=== PATIENT | male | born 1960 | race Hispanic/Latino ===

== ENCOUNTER 2022-03-03 13:52 | Emergency (ER) | payer OTHER ==
[~2022-03-03] VITALS: Ht 165.1 cm; Wt 133.4 kg
[2022-03-03] MEDS ORDERED: HYDROCODONE/ACETAMINOPHEN 5/325 MG TAB PO SCH (14:30)
[2022-03-03] MEDS ORDERED: NAPR-1180 PO (14:36)
[2022-03-03 14:44] VITALS: BP 129/74
== END 2022-03-03 14:41 | disposition home or self-care (01) ==
LOC: EDH 13:52
DX: M17.0 Bilateral primary osteoarthritis of knee (principal); I10 Essential (primary) hypertension; E66.01 Morbid (severe) obesity due to excess calories; Z68.42 Body mass index [BMI] 45.0-49.9, adult
CPT/HCPCS: 73562

== ENCOUNTER 2023-05-18 23:41 | Inpatient (IN) | payer BC ==
[~2023-05-18] VITALS: Ht 165.1 cm; Wt 138.4 kg
[~2023-05-18 23:41] MED LIST: NAPR-1180 PO
[2023-05-18] MEDS ORDERED: 0.9%NACL 1000ML 1,000 ML IV ONE (23:51)
[2023-05-18] MEDS ORDERED: ACETAMINOPHEN 500 MG TABLET ONE (23:51)
[2023-05-19] VITALS (9 sets, daily range): BP systolic 111–131; BP diastolic 52–70; PULSE 61–101; RESP 16–19; TEMP 101.5; O2SAT 95–96
[2023-05-19] MEDS ORDERED: ACETAMINOPHEN 500 MG TABLET PO ONE
[2023-05-19 00:26] LABS: INR 0.97 (0.85-1.15); PROTHROMBIN TIME 11.3 SEC (9.6-11.6)
[2023-05-19 00:26] LABS: CREATININE 2.1 mg/dL (0.5-1.5)
[2023-05-19 00:27] LABS: PARTIAL THROMBOPLASTIN TIME 28.4 SEC (26.3-35.5)
[2023-05-19 00:28] LABS: APPEARANCE,URINE CLOUDY (CLEAR); BILIRUBIN,URINE 0.5 mg/dL (NEGATIVE); COLOR,URINE YELLOW (YELLOW); GLUCOSE, URINE (UA) NEGATIVE (NEGATIVE); KETONES,URINE NEGATIVE (NEGATIVE); LEUKOCYTE ESTERASE ,URINE 25 Leu/uL (NEGATIVE); NITRATE,URINE NEGATIVE (NEGATIVE); OCCULT BLOOD,URINE NEGATIVE (NEGATIVE); PROTEIN,URINE 30 mg/dL (NEGATIVE)
[2023-05-19 00:29] LABS: BASOPHILS % (AUTO) 0.3 % (0.0-5.0); EOSINOPHILS % (AUTO) 0.4 % (0.0-8.0); HEMATOCRIT 40.9 % (42-54); LYMPHOCYTES % (AUTO) 3.9 % (21.0-51.0); MEAN CORPUSCULAR HEMOGLOBIN 29.1 pg (27.0-33.0); MEAN CORPUSCULAR HGB CONC 32.8 g/dL (32.0-36.0); MEAN CORPUSCULAR VOLUME 88.7 fL (79-99); MONOCYTES % (AUTO) 3.2 % (3.0-13.0); NEUTROPHILS % (AUTO) 91.6 % (40.0-77.0); PLATELET COUNT (AUTO) 361 K/uL (130-400); RED BLOOD CELL COUNT(AUTO) 4.61 MIL/uL (4.50-6.20); WHITE BLOOD COUNT (AUTO) 20.3 K/uL (4.8-10.8)
[2023-05-19 00:37] LABS: BACTERIA,URINE RARE /HPF (None Seen); HYALINE CASTS, URINE 26-50 /LPF (0-1 /LPF); MUCUS,URINE FEW LPF (None Seen); OTHER CASTS, URINE 18 /LPF (None Seen); SQUAMOUS EPITHELIAL CELL,UR RARE /HPF (0-2)
[2023-05-19 00:38] LABS: ALBUMIN 3.1 g/dL (3.5-5.0)
[2023-05-19] MEDS ORDERED: 0.9%NACL 1000ML 1,000 ML IV ONE ×2 (01:30)
[2023-05-19] MEDS ORDERED: METF-444 PO (01:49)
[2023-05-19] MEDS ORDERED: HYDR25TA PO (01:49)
[2023-05-19] MEDS ORDERED: METO50TA18 PO (01:49)
[2023-05-19] MEDS ORDERED: METO25TA6 PO (01:49)
[2023-05-19] MEDS ORDERED: LISI20TA24 PO (01:49)
[2023-05-19] MEDS ORDERED: VANCOMYCIN KIT 1 GM/250 ML IV.KIT IV ONE (02:00)
[2023-05-19] MEDS ORDERED: ZOSYN 3.375GM +NS 50ML IVPB ONE (02:00)
[2023-05-19] MEDS ORDERED: POTASSIUM BICARB/CIT AC 25 MEQ TABLET.EFF PO ONE (04:00)
[2023-05-19] MEDS ORDERED: VANCOMYCIN PROTOCOL PER PHARMACY IV SCH (04:30)
[2023-05-19] MEDS ORDERED: POTASSIUM CHLORIDE 10MEQ/100ML 100 ML IV PRN (04:30)
[2023-05-19] MEDS ORDERED: ONDANSETRON 4MG INJ IV PRN (04:30)
[2023-05-19] MEDS: ZOSYN 3.375GM +NS 50ML IVPB SCH ×3 (04:30→20:15)
[2023-05-19] MEDS ORDERED: ACETAMINOPHEN 325 MG TAB PO PRN ×2 (04:30)
[2023-05-19] MEDS ORDERED: POTASSIUM CHLORIDE 10% ELIXIR 20 MEQ/15 ML UDCUP PO PRN (04:30)
[2023-05-19] MEDS ORDERED: GLUCAGON 1MG KIT 1 MG ML IM PRN (05:00)
[2023-05-19] MEDS ORDERED: DEXTROSE 50%-WATER 50 ML DISP.SYRIN IV PRN (05:00)
[2023-05-19] MEDS ORDERED: ASPIRIN 81 MG EC TAB PO ONE (05:30)
[2023-05-19] MEDS: HEPARIN 5,000 UNIT VIAL SQ SCH ×2 (05:49→16:31)
[2023-05-19] MEDS: LACTATED RINGERS 1000ML 1,000 ML IV SCH ×2 (06:03→16:58)
[2023-05-19] MEDS ORDERED: MUPI22O TP (06:54)
[2023-05-19] MEDS ORDERED: SULF1TAB89 PO (06:54)
[2023-05-19] MEDS: INSULIN HUMULIN R 100 UNIT/ML 3ML SQ SCH ×4 (07:30→20:15)
[2023-05-19] MEDS ORDERED: 0.9%NACL 50ML IV SCH (09:00)
[2023-05-19 11:17] LABS: BASOPHILS % (AUTO) 0.4 % (0.0-5.0); EOSINOPHILS % (AUTO) 0.5 % (0.0-8.0); HEMATOCRIT 39.2 % (42-54); LYMPHOCYTES % (AUTO) 7.3 % (21.0-51.0); MEAN CORPUSCULAR HGB CONC 31.6 g/dL (32.0-36.0); MEAN CORPUSCULAR VOLUME 91.6 fL (79-99); MONOCYTES % (AUTO) 7.1 % (3.0-13.0); NEUTROPHILS % (AUTO) 84.1 % (40.0-77.0); PLATELET COUNT (AUTO) 348 K/uL (130-400); RED BLOOD CELL COUNT(AUTO) 4.28 MIL/uL (4.50-6.20); RED CELL DISTRIBUTION WIDTH 13.3 % (11.0-15.5); WHITE BLOOD COUNT (AUTO) 17.2 K/uL (4.8-10.8)
[2023-05-19 11:43] LABS: HEMOGLOBIN A1C 6.7 % (4.0-6.0)
[2023-05-19] MEDS ORDERED: KCL 20 MEQ ERTAB PO ONE (12:00)
[2023-05-19 12:51] LABS: CREATININE 1.4 mg/dL (0.5-1.5); POTASSIUM 4.2 mmol/L (3.5-5.1); TOTAL PROTEIN, SERUM 7.2 g/dL (6.0-8.3)
[2023-05-20] VITALS (7 sets, daily range): BP systolic 104–130; BP diastolic 51–74; PULSE 68–89; RESP 18–20; O2SAT 97
[2023-05-20] MEDS: ZOSYN 3.375GM +NS 50ML IVPB SCH ×3 (04:23→20:33)
[2023-05-20 05:18] LABS: HEMATOCRIT 37.5 % (42-54); MEAN CORPUSCULAR HEMOGLOBIN 29.2 pg (27.0-33.0); MEAN CORPUSCULAR VOLUME 91.2 fL (79-99); RED BLOOD CELL COUNT(AUTO) 4.11 MIL/uL (4.50-6.20); WHITE BLOOD COUNT (AUTO) 11.8 K/uL (4.8-10.8)
[2023-05-20] MEDS: INSULIN HUMULIN R 100 UNIT/ML 3ML SQ SCH ×4 (05:27→20:35)
[2023-05-20 05:38] LABS: ALBUMIN 2.6 g/dL (3.5-5.0); CREATININE 1.1 mg/dL (0.5-1.5); MAGNESIUM 1.7 mg/dL (1.80-2.40); POTASSIUM 3.5 mmol/L (3.5-5.1); TOTAL PROTEIN, SERUM 6.4 g/dL (6.0-8.3)
[2023-05-20] MEDS: HEPARIN 5,000 UNIT VIAL SQ SCH ×2 (05:41→18:02)
[2023-05-20] MEDS: MAGNESIUM 2GM PREMIX 50ML 50 ML IV PRN (06:28)
[2023-05-20] MEDS: KCL 20 MEQ ERTAB PO PRN ×2 (06:28→09:20)
[2023-05-20] MEDS ORDERED: VANCOMYCIN 1.25 GM/250 ML BAG 250 ML IV SCH (07:00)
[2023-05-20] MEDS: LISINOPRIL 20 MG TABLET PO SCH (09:20)
[2023-05-20] MEDS: METOPROLOL TARTRATE 50 MG TAB PO SCH (09:20)
[2023-05-20] MEDS: LACTATED RINGERS 1000ML 1,000 ML IV SCH ×2 (12:16→20:33)
[2023-05-21] VITALS (8 sets, daily range): BP systolic 92–139; BP diastolic 50–75; PULSE 54–64; RESP 18–20; O2SAT 98–99
[2023-05-21] MEDS: ZOSYN 3.375GM +NS 50ML IVPB SCH ×3 (03:49→19:41)
[2023-05-21] MEDS: HEPARIN 5,000 UNIT VIAL SQ SCH ×2 (03:50→17:19)
[2023-05-21] MEDS: INSULIN HUMULIN R 100 UNIT/ML 3ML SQ SCH ×4 (05:43→19:50)
[2023-05-21 07:01] LABS: BASOPHILS % (AUTO) 0.2 % (0.0-5.0); EOSINOPHILS % (AUTO) 0.6 % (0.0-8.0); HEMATOCRIT 39.8 % (42-54); LYMPHOCYTES % (AUTO) 17.8 % (21.0-51.0); MEAN CORPUSCULAR HGB CONC 31.9 g/dL (32.0-36.0); MEAN CORPUSCULAR VOLUME 90.9 fL (79-99); MONOCYTES % (AUTO) 8.7 % (3.0-13.0); NEUTROPHILS % (AUTO) 72.1 % (40.0-77.0); PLATELET COUNT (AUTO) 306 K/uL (130-400); RED BLOOD CELL COUNT(AUTO) 4.38 MIL/uL (4.50-6.20); WHITE BLOOD COUNT (AUTO) 12.2 K/uL (4.8-10.8)
[2023-05-21 07:26] LABS: PHOSPHORUS 3.2 mg/dL (2.5-4.9); POTASSIUM 4.1 mmol/L (3.5-5.1)
[2023-05-21] MEDS: LISINOPRIL 20 MG TABLET PO SCH (08:51)
[2023-05-21] MEDS: METOPROLOL TARTRATE 50 MG TAB PO SCH (08:51)
[2023-05-21] MEDS: VANCOMYCIN 1.5 GM/250 ML BAG 250 ML IV SCH ×2 (10:16→23:56)
[2023-05-22] VITALS: BP 126/74; PULSE 59; RESP 20
[2023-05-22] MEDS: ZOSYN 3.375GM +NS 50ML IVPB SCH ×2 (03:49→12:03)
[2023-05-22 04:00] VITALS: BP 113/62; PULSE 67; RESP 20
[2023-05-22 05:03] LABS: BASOPHILS % (AUTO) 0.6 % (0.0-5.0); EOSINOPHILS % (AUTO) 2.8 % (0.0-8.0); HEMATOCRIT 39.9 % (42-54); LYMPHOCYTES % (AUTO) 27.6 % (21.0-51.0); MEAN CORPUSCULAR HGB CONC 31.6 g/dL (32.0-36.0); MEAN CORPUSCULAR VOLUME 91.7 fL (79-99); MONOCYTES % (AUTO) 10.3 % (3.0-13.0); NEUTROPHILS % (AUTO) 58.2 % (40.0-77.0); PLATELET COUNT (AUTO) 324 K/uL (130-400); RED BLOOD CELL COUNT(AUTO) 4.35 MIL/uL (4.50-6.20); RED CELL DISTRIBUTION WIDTH 12.9 % (11.0-15.5); WHITE BLOOD COUNT (AUTO) 9.9 K/uL (4.8-10.8)
[2023-05-22] MEDS: INSULIN HUMULIN R 100 UNIT/ML 3ML SQ SCH ×2 (05:11→11:30)
[2023-05-22 05:46] LABS: ALBUMIN 2.7 g/dL (3.5-5.0); MAGNESIUM 1.8 mg/dL (1.80-2.40); POTASSIUM 4.2 mmol/L (3.5-5.1); TOTAL PROTEIN, SERUM 6.4 g/dL (6.0-8.3)
[2023-05-22] MEDS: MAGNESIUM 2GM PREMIX 50ML 50 ML IV PRN (05:58)
[2023-05-22] MEDS: HEPARIN 5,000 UNIT VIAL SQ SCH (05:59)
[2023-05-22 08:00] VITALS: BP 147/78; PULSE 107; RESP 18
[2023-05-22] MEDS: METOPROLOL TARTRATE 50 MG TAB PO SCH (09:17)
[2023-05-22] MEDS: LISINOPRIL 20 MG TABLET PO SCH (09:18)
[2023-05-22 10:49] VITALS: O2SAT 95
[2023-05-22 12:00] VITALS: BP 143/75; PULSE 75; RESP 18
[2023-05-22] MEDS: VANCOMYCIN 1.5 GM/250 ML BAG 250 ML IV SCH (12:02)
[2023-05-22 16:00] VITALS: BP 104/83; PULSE 75; RESP 17
== END 2023-05-22 16:35 | disposition home or self-care (01) | DRG 871 ==
LOC: EDH 23:41 → EDHIP 05-19 04:09 → 3DH 05-19 06:06
PROVIDERS: ADMIT Hospitalist; ATTEND Hospitalist
PROC: 0HBRXZZ Excision of Toe Nail, External Approach (ICD-10-PCS; principal; 2023-05-20)
PROC: 0HBRXZZ Excision of Toe Nail, External Approach (ICD-10-PCS; 2023-05-20)
PROC: 0HBRXZZ Excision of Toe Nail, External Approach (ICD-10-PCS; 2023-05-20)
PROC: 0HBRXZZ Excision of Toe Nail, External Approach (ICD-10-PCS; 2023-05-20)
PROC: 0HBRXZZ Excision of Toe Nail, External Approach (ICD-10-PCS; 2023-05-20)
PROC: 0HBRXZZ Excision of Toe Nail, External Approach (ICD-10-PCS; 2023-05-20)
PROC: 0HBRXZZ Excision of Toe Nail, External Approach (ICD-10-PCS; 2023-05-20)
PROC: 0HBRXZZ Excision of Toe Nail, External Approach (ICD-10-PCS; 2023-05-20)
PROC: 0HBRXZZ Excision of Toe Nail, External Approach (ICD-10-PCS; 2023-05-20)
PROC: 0HBRXZZ Excision of Toe Nail, External Approach (ICD-10-PCS; 2023-05-20)
DX: A41.9 Sepsis, unspecified organism (principal); I21.A1 Myocardial infarction type 2; N39.0 Urinary tract infection, site not specified; E44.1 Mild protein-calorie malnutrition; L03.116 Cellulitis of left lower limb; N17.9 Acute kidney failure, unspecified; Z68.43 Body mass index [BMI] 50.0-59.9, adult; Z20.822 Contact with and (suspected) exposure to COVID-19; E87.6 Hypokalemia; L97.529 Non-pressure chronic ulcer of other part of left foot with unspecified severity; E11.621 Type 2 diabetes mellitus with foot ulcer; B35.1 Tinea unguium; E11.51 Type 2 diabetes mellitus with diabetic peripheral angiopathy without gangrene; E66.01 Morbid (severe) obesity due to excess calories; E83.42 Hypomagnesemia; E86.9 Volume depletion, unspecified; I10 Essential (primary) hypertension; Z96.653 Presence of artificial knee joint, bilateral; L60.0 Ingrowing nail; L60.2 Onychogryphosis; R62.7 Adult failure to thrive; Z79.899 Other long term (current) drug therapy
CPT/HCPCS: 36415; 70450; 71045; 71250; 73620; 73630; 74176; 76770; 80048; 80053; 80202; 81001; 82550; 82948; 83036; 83605; 83735; 83880; 84100; 84484; 85025; 85027; 85610; 85730; 87040; 87088; 87635; 87804; 87880; 93005; 93306; 93925; C9803; G0378; J1644; J1815; J2543; J3370; J3475; J7030; J7120; 3370